=== PATIENT | male | born 1985 | race Caucasian/White ===

== ENCOUNTER 2022-07-15 12:03 | Emergency (ER) | payer BC, SELFPAY ==
--- NOTE | ~2022-07-15 | XR_ITS ---
Lumbosacral Spine: AP, oblique, and lateral views Clinical History: Pain Findings: The normal lordotic curve is maintained. The vertebral bodies and posterior elements are i ntact. The intervertebral disc spaces are preserved. The sacroiliac joints are normally outlined. Impression: No significant abnormality. Reviewed, dictated and finalized at [facility]. Impression: No significant abnormality.
[2022-07-15 12:29] VITALS: BP 132/92; PULSE 76; RESP 16; TEMP 36.2; O2SAT 99
[2022-07-15] MEDS: predniSONE 20 MG TABLET 60 MG PO (14:23)
[2022-07-15] MEDS: IBUPROFEN 600 MG TABLET PO (14:23)
[2022-07-15] MEDS: diazePAM (*CRX) 5 MG TABLET PO (14:23)
--- NOTE | 2022-07-15 14:55 | ED.BACK ---
HPI - Back Pain/Injury General Chief Complaint: Back Pain/Injury Stated Complaint: back pain after sneeze Time Seen by Provider: 07/15/22 13:52 Source: RN notes reviewed History of Present Illness HPI Narrative: Patient presents emergency department from home for back pain. Patient states that approximately 8 AM this morning he sneezed with immediate pain in his left lower back radiating to his buttocks. He states that the pain caused him to fall to the floor. States that since that time has been feeling spasm in his left lower back into his leg states that he did try taking ibuprofen 400 mg approximately 8 this morning with minimal relief. He denies any fevers or chills he denies any abdominal pain bowel or bladder incontinence numbness or weakness to the extremities or any other symptoms. States he is unable to ambulate but it is more painful to sit down Related Data Allergies Allergy/AdvReac Type Severity Reaction Status Date / Time No Known Allergies Allergy Verified 07/15/22 12:28 Review of Systems Review of Systems: Gen.: Denies fevers or chills Respiratory: Denies shortness of breath or cough CV: Denies chest pain GI: Denies abdominal pain nausea, emesis denies incontinence Musculoskeletal: See HPI Neuro: Denies numbness, tingling, weakness or focal weakness Skin: Denies rash Except as documented, all other systems reviewed and negative [facility] Past Medical History Medical History (Updated 07/15/22 @ 14:59 by Willian Winters DO) Patient denies significant medical history Social History Social History (Updated 07/15/22 @ 14:57 by Willian Winters DO) Smoking status: Never smoker Exam Narrative: APPEARANCE: No acute distress, nontoxic, resting in bed Eyes: EOMI HEENT: Normocephalic, atraumatic, CV: Regular rate and rhythm without murmur RESPIRATORY: No respiratory distress. Clear to auscultation bilaterally. Abdomen: Soft and nontender, no rebound or guarding MUSCULOSKELETAl: Moves all extremities, no clubbing cyanosis or edema Back: No midline lumbar tenderness to palpation or step-off, tender to palpation over left paravertebral muscles L4-5 and left piriformis region, pain increased with forward flexion NEURO: Awake and alert. Following commands, speech normal, no focal deficits, muscle strength 5 out of 5 bilateral lower extremities SKIN:: Warm, dry. Normal Color no rash or lesions Course Course Emergency Course: Discussed with patient results of workup and diagnosis. Discussed need for follow-up with primary care, proper use of medication, and reasons to return to the emergency department. Patient understands and agrees to current treatment plan Vital Signs Vital signs: Vital Signs Temperature 97.2 F L 07/15/22 12:29 Pulse Rate 76 07/15/22 12:29 Respiratory Rate 16 07/15/22 12:29 Blood Pressure 132/92 H 07/15/22 12:29 Pulse Oximetry 99 07/15/22 12:29 Oxygen Delivery Room Air 07/15/22 12:29 Temperature 97.2 F L 07/15/22 12:29 Pulse Rate 76 07/15/22 12:29 Respiratory Rate 16 07/15/22 12:29 Blood Pressure 132/92 H 07/15/22 12:29 Pulse Oximetry 99 07/15/22 12:29 Oxygen Delivery Room Air 07/15/22 12:29 MDM - Back Pain/Injury MDM Narrative Medical decision making narrative: Patient?s pain is positional and localized to back without signs of cord compression or cauda equina. Normal neurologic exams. No fever noted and no significant risk factors for osteomyelitis or spinal epidural abscess. No symptoms or signs to suggest pain is referred from abdominal or source. There are no pulsatile masses to exam. Patient is felt reasonable for outpatient evaluation Differential Diagnosis Differential diagnosis: Likely lumbar radiculopathy, sciatica and strain of lumbar region Imaging Data Radiologist's impression: ITS Impressions Lumbar Spine X-Ray 07/15/22 14:37 Impression: No significant abnormality. Discharge Plan Dis
[2022-07-15 15:19] VITALS: BP 130/88; PULSE 84; RESP 14; O2SAT 99
== END 2022-07-15 15:21 | disposition home or self-care (01) ==
PROVIDERS: Emergency Provider Emergency Medicine; PCP Family Medicine
DX: M54.50 Low back pain, unspecified (principal)
CPT/HCPCS: 72110; 99283; A9270; J7512

== ENCOUNTER 2024-12-01 14:55 | Outpatient (CLI) | payer BC, SELFPAY | END 2024-12-01 14:56 | disposition home or self-care (01) | PROVIDERS: PCP Family Medicine | DX: M25.561 Pain in right knee (principal) | CPT/HCPCS: 73562 ==